=== PATIENT | female | born 1985 | race African-American/Black ===

== ENCOUNTER 2016-04-12 04:27 | Emergency (ER) | payer OTHER ==
[~2016-04-12] VITALS: Ht 160 cm; Wt 77.5 kg
[~2016-04-12 04:27] MED LIST: FLXUNK; NAPR250T2 PO
[2016-04-12 04:32] VITALS: Ht 160 cm; Wt 77.5 kg
[2016-04-12] MEDS ORDERED: MoRPHine SULFATE 4 MG/ML 1 ML CARP\\VIAL IV STA ×2 (04:56→06:41)
[2016-04-12] MEDS ORDERED: ACETAMINOPHEN 500 MG TAB PO STA (04:56)
[2016-04-12] MEDS ORDERED: ONDANSETRON INJ 2 MG/ML 2 ML VIAL IV STA (04:56)
[2016-04-12] MEDS ORDERED: SODIUM CHLORIDE 0.9% 1000ML 1,000 ML IV STA (04:56)
[2016-04-12 05:11] LABS: URINE APPEARANCE CLOUDY (CLEAR); URINE BILIRUBIN NEG (NEG); URINE COLOR YELLOW; URINE EPITHELIAL CELL AUTO >30 /lpf (0-5); URINE NITRITE NEG (NEG); URINE SPECIFIC GRAVITY 1.013 (1.000-1.030); UROBILINOGEN NEG (NEG); ZZUR CULT IF INDIC CLEAN CATCH YES
[2016-04-12 05:12] LABS: BASO % 0.2 %; BASO ABS # 0.02 K/uL (0-0.2); COMPLETE YES; EOS % 1.2 %; HEMATOCRIT 29.8 % (37-47); IG% 0.1 %; LYMPH % 11.3 %; LYMPH ABS # 1.22 K/uL (1.2-3.4); MEAN CELL VOLUME 74.1 fL (80-100); MEAN CORPUSCULAR HEMOGLOBIN 23.1 pg (25-34); MEAN CORPUSCULAR HGB CONC 31.2 g/dl (32-36); MEAN PLATELET VOLUME 9.5 fL (7.4-10.4); MONO % 6.1 %; NEUT % 81.1 %; PLATELET COUNT 402 K/uL (130-400); RED BLOOD COUNT 4.02 M/uL (4.2-5.4); WHITE BLOOD COUNT 10.78 K/uL (4.8-10.8)
[2016-04-12 05:29] LABS: BUN/CREATININE RATIO 5.5 (10-20); CALCIUM 9.1 mg/dl (8.5-10.1); CREATININE 1.1 mg/dl (0.60-1.20); POTASSIUM 3.9 mmol/L (3.5-5.1)
[2016-04-12 05:30] LABS: MANUAL MICROSCOPIC REQUIRED? NO; REVIEW REQ? YES
[2016-04-12] MEDS ORDERED: OPTIRAY 320 IV PRN (05:30)
[2016-04-12 05:32] LABS: ALB/GLOB RATIO 0.9 (0.9-2); C-REACTIVE PROTEIN 10.8 mg/dl (0-0.29)
--- NOTE | 2016-04-12 06:45 | EMERGENCY ROOM VISIT NOTE ---
History First contact with patient: 04:40 Chief Complaint: ABDOMINAL PAIN Stated Complaint: LWR RIGHT ABDOMINAL PAIN Nursing Triage Summary: Pt reports she developed RLQ abdominal pain yesterday morning. Fever developed. Pain has worsened throughout the day and was severe overnight. Hx of fibroids causing similar pain, but never this severe. History of Present Illness The patient is a 31 year old female who presents to the Emergency Department by private vehicle for evaluation of her RIGHT lower quadrant abdominal pain. She reports that yesterday and she noticed pain to the RIGHT lower quadrant. Her pain intensified throughout the day. She does report a history of uterine fibroids and was concerned that this was secondary to a fibroid. She has noticed feeling fevers. She was nauseated, however she did not vomit. She denies any diarrhea. She reports no blood in her stools. She denies any chance for . She rates her current discomfort as a 9/10. She denies any previous abdominal surgeries. She is uncertain of family history secondary to being adopted. She denies any headaches, dizziness, lightheadedness, chest pain, palpitations, short of breath, hematochezia, melena, hematuria, or dysuria. Review of Systems A complete 10-point Review of Systems was discussed with the patient, with pertinent positives and negatives listed in the History of Present Illness. All remaining Review of Systems questions can be considered negative unless otherwise specified. Past Medical/Surgical History Medical Problems: (1) Menorrhagia Social History Smoking Status: Never Smoker Smokeless Tobacco Use: No Drug Use: none Marital Status: in relationship Housing Status: lives with significant other Current/Historical Medications Scheduled Amoxicillin & Pot Clavulanate (Augmentin 500MG), 500 MG PO Q8H Ethinyl Estrad/Norgestimate (Sprintec 28), 1 TAB PO DAILY Scheduled PRN Hydrocodone/Acetaminophen 5MG/325MG ([place] 5MG/325MG), 1-2 TABLET PO Q4H PRN for Pain Allergies Coded Allergies: No Known Allergies (Unverified , NONE, 04/12/16) Physical Exam Vital Signs Date Time Temp Pulse Resp B/P Pulse Ox O2 Delivery O2 Flow Rate FiO2 04/12/16 09:08 84 16 93/61 99 04/12/16 08:25 37.1 85 16 81/48 97 Room Air 04/12/16 06:49 36.9 04/12/16 06:31 87 18 103/60 95 Room Air 04/12/16 04:32 37.8 114 18 120/69 98 Room Air Pain Rating (0-10): 9 Physical Exam VITAL SIGNS - Vital signs and nursing notes were reviewed. GENERAL - 31-year-old female appearing her stated age who is in no acute distress. Communicates well with provider and answers questions appropriately. LUNGS - Chest wall symmetric without accessory muscle use, intercostals retractions, or central cyanosis. Normal vesicular breath sounds CTA B/L. No wheezes, rales, or rhonchi appreciated. CARDIAC - RRR with S1/S2. No murmur, rubs, or gallops appreciated. ABDOMEN - Abdominal contour gravid appearing and without pulsations or visible masses. BS normoactive all four quadrants. Moderate tenderness to palpation appreciated in the RIGHT lower quadrant. Negative Rovsing's. No Chandler's. Large palpable mass in the RIGHT lower quadrant. PSYCH - A&Ox3 and cooperates fully with examiner. Pt is very pleasant and interacts well with examiner. Medical Decision & Procedures ER Provider Diagnostic Interpretation: Radiological imaging and reports were reviewed by myself. Radiologist's Interpretation as follows: ULTRASOUND OF THE PELVIS CLINICAL HISTORY: Right pelvic pain. COMPARISON STUDY: No priors. TECHNIQUE: Real-time, grayscale, and color flow sonography of the pelvis is performed both transabdominally and endovaginally. Images are reviewed in the transverse and longitudinal planes. FINDINGS: Uterus: The uterus is enlarged and heterogeneous, measuring over 15 cm in length. A solid uterine mass measures 17.5 cm. This demonstrates internal vascularity on color imaging and is typical in appearance for a large fibroid. Numerous additional fibroids are identified, some of which demonstrate dense calcification. Endometrium: The endometrium is normal in appearance, and the endometrial stripe is normal in thickness measuring up to 0.5 cm. Ovaries: The right ovary is not visualized. The left ovary is normal as visualized, measuring 4.1 x 2.1 x 1.7 cm. Normal Doppler waveforms are shown within the left ovary. Pelvis: There is no free fluid in the cul-de-sac. No concerning adnexal lesion is seen. IMPRESSION: 1. No acute sonographic abnormality is identified in the pelvis. 2. There are large uterine masses identified measuring up to 17 cm. Although pathologically indeterminant, the appearance is typical for fibroids. Consider gynecologic follow-up. 3. The left ovary is normal as visualized. The right ovary was not seen. CT SCAN OF THE ABDOMEN AND PELVIS WITH IV CONTRAST CLINICAL HISTORY: Right lower quadrant abdominal pain. COMPARISON STUDY: Pelvic ultrasound dated 04/12/2016. TECHNIQUE: Following the IV administration of 94 cc of Optiray 320, CT scan of the abdomen and pelvis is performed from the lung bases to the proximal femora. Images are reviewed in the axial, sagittal, and coronal planes. IV contrast was administered without complication. Automated dose control exposure was utilized. CT DOSE: 741.09 mGycm FINDINGS: Lung bases: The heart is normal in size and without pericardial effusion. The lung bases are clear noting dependent atelectasis. Liver: The contrast-enhanced liver is normal in size, contour, and attenuation. Focal fatty infiltration is noted adjacent to the falciform ligament. There is no intrahepatic biliary ductal dilatation. The hepatic veins and portal veins are patent. Gallbladder: Unremarkable. Spleen: Normal in size and attenuation. Pancreas: Unremarkable. Adrenal glands: Unremarkable. Kidneys: The contrast enhanced kidneys are normal in size and without hydronephrosis. The kidneys enhance symmetrically. Abdominal vasculature: The abdominal aorta is normal in course and caliber. Bowel: The small bowel and colon are normal in course and caliber. There is moderate colonic fecal retention. The appendix is well-visualized and normal. Peritoneum: There is no intraperitoneal free air or abdominal ascites. Lymphadenopathy: None. Pelvic viscera: The bladder is normal as visualized. The uterus is heterogeneous and contains numerous masses. Several of these are densely calcified. The appearance is typical for uterine fibroids. The largest fibroid measures over 16 cm and demonstrates central low-attenuation. This may represent necrosis. No adnexal lesion is identified. Skeletal structures: No lytic or blastic lesions are seen. There are bilateral pars defects at L5. Sclerotic change is seen involving the sacroiliac joints and pubic symphysis. IMPRESSION: 1. The uterus is markedly enlarged and infiltrated by numerous mass lesions. Although pathologically indeterminant, these are typical appearance for fibroids and this corresponds to the abnormality seen on today's pelvic ultrasound. 2. The largest fibroid measures over 16 cm and demonstrates central low-attenuation. This may represent necrosis/infarction. Follow-up with gynecology is recommended. 3. The appendix is well-visualized and normal. Laboratory Results 04/12/16 04:50 Red Blood Count 4.02, Mean Corpuscular Volume 74.1, Mean Corpuscular Hemoglobin 23.1, Mean Corpuscular Hemoglobin Concent 31.2, Mean Platelet Volume 9.5, Neutrophils (%) (Auto) 81.1, Lymphocytes (%) (Auto) 11.3, Monocytes (%) (Auto) 6.1, Eosinophils (%) (Auto) 1.2, Basophils (%) (Auto) 0.2, Neutrophils # (Auto) 8.74, Lymphocytes # (Auto) 1.22, Monocytes # (Auto) 0.66, Eosinophils # (Auto) 0.13, Basophils # (Auto) 0.02 04/12/16 04:50 Test 04/12/16 04:37 04/12/16 04:50 Urine Color YELLOW Urine Appearance CLOUDY (CLEAR) Urine pH 7.0 (4.5-7.5) Urine Specific [place] 1.013 (1.000-1.030) Urine Protein TRACE (NEG) Urine Glucose (UA) NEG (NEG) Urine Ketones 1+ (NEG) Urine Occult Blood 3+ (NEG) Urine Nitrite NEG (NEG) Urine Bilirubin NEG (NEG) Urine Urobilinogen NEG (NEG) Urine Leukocyte Esterase TRACE (NEG) Urine WBC (Auto) 5-10 /hpf (0-5) Urine RBC (Auto) 0-4 /hpf (0-4) Urine Hyaline Casts (Auto) 0 /lpf (0-5) Urine Epithelial Cells (Auto) >30 /lpf (0-5) Urine Bacteria (Auto) 2+ (NEG) Urine Pathogenic Casts /lpf (0) Urine Yeast (Auto) (NONE PRSENT) Urine Test NEG (NEG) White Blood Count 10.78 K/uL (4.8-10.8) Red Blood Count 4.02 M/uL (4.2-5.4) Hemoglobin 9.3 g/dL (12.0-16.0) Hematocrit 29.8 % (37-47) Mean Corpuscular Volume 74.1 fL (80-100) Mean Corpuscular Hemoglobin 23.1 pg (25-34) Mean Corpuscular Hemoglobin Concent 31.2 g/dl (32-36) Platelet Count 402 K/uL (130-400) Mean Platelet Volume 9.5 fL (7.4-10.4) Neutrophils (%) (Auto) 81.1 % Lymphocytes (%) (Auto) 11.3 % Monocytes (%) (Auto) 6.1 % Eosinophils (%) (Auto) 1.2 % Basophils (%) (Auto) 0.2 % Neutrophils # (Auto) 8.74 K/uL (1.4-6.5) Lymphocytes # (Auto) 1.22 K/uL (1.2-3.4) Monocytes # (Auto) 0.66 K/uL (0.11-0.59) Eosinophils # (Auto) 0.13 K/uL (0-0.5) Basophils # (Auto) 0.02 K/uL (0-0.2) RDW Standard Deviation 44.2 fL (36.4-46.3) RDW Coefficient of Variation 16.3 % (11.5-14.5) Immature Granulocyte % (Auto) 0.1 % Immature Granulocyte # (Auto) 0.01 K/uL (0.00-0.02) Erythrocyte Sedimentation Rate > 90 mm/hr (0-21) Anion Gap 9.0 mmol/L (3-11) Est Creatinine Clear Calc Drug Dose 73.0 ml/min Estimated GFR () 77.5 Estimated GFR (Non- 66.8 BUN/Creatinine Ratio 5.5 (10-20) Calcium Level 9.1 mg/dl (8.5-10.1) Magnesium Level 2.0 mg/dl (1.8-2.4) Total Bilirubin 0.4 mg/dl (0.2-1) Aspartate Amino Transf (AST/SGOT) 48 U/L (15-37) Alanine Aminotransferase (ALT/SGPT) 26 U/L (12-78) Alkaline Phosphatase 53 U/L (45-117) C-Reactive Protein 10.80 mg/dl (0-0.29) Total Protein 8.2 gm/dl (6.4-8.2) Albumin 3.8 gm/dl (3.4-5.0) Globulin 4.4 gm/dl (2.5-4.0) Albumin/Globulin Ratio 0.9 (0.9-2) Lipase 109 U/L (73-393) Human Chorionic Gonadotropin, Quant < 1 mIU/mL Date/Time Source Procedure Growth Status 04/12/16 04:37 Urine , Clean Catch Urine Culture - Final THREE TYPES OF ORGANSIMS PRESENT, ALL... Complete Medications Administered Medications (Trade) Dose Ordered Sig/Kennedy Route Start Time Stop Time Status Last Admin Dose Admin Sodium Chloride (Nss 1000ml) 1,000 ml @ 999 mls/hr Q1H1M STAT IV 04/12/16 04:56 04/12/16 05:56 DC 04/12/16 05:07 999 MLS/HR Ondansetron HCl (Zofran Inj) 4 mg NOW STAT IV 04/12/16 04:56 04/12/16 04:59 DC 04/12/16 05:07 4 MG Morphine Sulfate (MoRPHine SULFATE INJ) 4 mg NOW STAT IV 04/12/16 04:56 04/12/16 04:59 DC 04/12/16 05:06 4 MG Acetaminophen (Tylenol Tab) 1,000 mg NOW STAT PO 04/12/16 04:56 04/12/16 04:59 DC 04/12/16 05:06 1,000 MG Morphine Sulfate (MoRPHine SULFATE INJ) 4 mg NOW STAT IV 04/12/16 06:41 04/12/16 06:42 DC 04/12/16 06:48 4 MG ED Course Patient was seen and evaluated by myself. Labs were drawn, saline lock in place. The patient was hydrated with a 1000 mL normal saline bolus. She received 4 mg morphine and 4 mg Zofran intravenously. She was treated with 1 g of Tylenol for low-grade fever. Pelvic ultrasound was obtained. Abdomen and pelvis CT with IV and oral contrast was ordered. Laboratory results demonstrate no acute leukocytosis. The patient does have a moderate anemia. ESR was significantly elevated at greater than 90. CRP was elevated at 10.8. She has no significant electrolyte abnormalities. Urinalysis does not suggest infection. Urine was negative. Imaging results as above. Laboratory results and imaging studies were reviewed with the patient who acknowledges understanding. I did discuss the case with Dr. Ojeda of [facility]. She does not suggest antibiotic this time. She suggest close follow-up this week for recheck. Case management was able to establish an appointment tomorrow at 2:[address] Hall for continued management. Patient was comfortable with this disposition and plan. The patient was educated on worrisome symptoms for return visit to the emergency department. Patient discharged home afebrile and in good condition. Medical Decision Given the patient's presentation and stated complaints, I did elect to perform the above-mentioned workup. The patient presents today with a low-grade fever complaints of abdominal pain. She is palpable uterine mass. She has a known history of fibroids. Initial concern given the patient's anemia and elevated ESR was for malignancy. Because of this, ultrasound as well as CT of the abdomen pelvis with IV and oral contrast was ordered. She had no leukocytosis. CT confirms suspicion of worsening uterine fibroids. I did consult [facility]. I do not feel that any interventional management was necessary immediately, however they do feel the patient needs to follow closely for plan of action for worsening symptoms related to her fibroids. This information was relayed to the patient who acknowledges understanding. The patient was educated on worrisome symptoms for return visit to the emergency department. Patient discharged home afebrile and in good condition. In the evaluation and treatment of this patient, the following differential diagnoses were considered: Malignancy, , torsion, appendicitis, bowel perforation, diverticulitis, diverticulosis, amongst others. Impression Primary Impression: Uterine fibroid Additional Impression: Abdominal pain Departure Information Dispostion Home / Self-Care Condition GOOD Prescriptions Hydrocodone/Acetaminophen 5MG/325MG ([place] 5MG/325MG) Tab 1-2 TABLET PO Q4H Y for Pain, #20 TAB For Initial Treatment Prov: Abraham Golden PA-C 04/12/16 Referrals Katerin BAL M.D. (PCP) Ryan Melgar M.D. Patient Instructions ED Fibroids, [facility] Additional Instructions You have been treated in the Emergency Department your Abdominal Pain - Uterine Fibroids. You have been prescribed [place] to be used for pain control. This is a narcotic medication. You cannot drive or consume alcohol while on this medicine. This medicine should only be used for pain that cannot be controlled with over-the- counter pain medicines. For pain control, you can use the following [id number] medicines (if >12 yo): - Regular strength (325mg/tab) Tylenol (acetaminophen) 2 tabs every 4-6 hours as needed. Do not exceed 12 tablets in a 24 hour period. Avoid taking more than 4 grams (4000 mg) of Tylenol per day. This includes any other sources of acetaminophen you may take on a regular basis. - Regular strength (200 mg/tab) Advil (ibuprofen) 1-2 tabs every 4-6 hours as needed. Do not exceed a dose of 3200 mg per day. Drink plenty of water and stay well hydrated. Please follow-up with your [facility] this week for continued management. Return to the emergency department if your symptoms persist despite treatment plan outlined above or if the following symptoms occur: increased fevers, chills , worsening nausea/vomiting, blood in your stool or urine. Problem Qualifiers Primary Impression: Uterine fibroid Uterine leiomyoma location: unspecified location Qualified Codes: D25.9 - Leiomyoma of uterus, unspecified Additional Impression: Abdominal pain Abdominal location: right lower quadrant Qualified Codes: R10.31 - Right lower quadrant pain
--- NOTE | 2016-04-12 07:25 | DIAGNOSTIC IMAGING REPORT ---
ULTRASOUND OF THE PELVIS CLINICAL HISTORY: Right pelvic pain. COMPARISON STUDY: No priors. TECHNIQUE: Real-time, grayscale, and color flow sonography of the pelvis is performed both transabdominally and endovaginally. Images are reviewed in the transverse and longitudinal planes. FINDINGS: Uterus: The uterus is enlarged and heterogeneous, measuring over 15 cm in length. A solid uterine mass measures 17.5 cm. This demonstrates internal vascularity on color imaging and is typical in appearance for a large fibroid. Numerous additional fibroids are identified, some of which demonstrate dense calcification. Endometrium: The endometrium is normal in appearance, and the endometrial stripe is normal in thickness measuring up to 0.5 cm. Ovaries: The right ovary is not visualized. The left ovary is normal as visualized, measuring 4.1 x 2.1 x 1.7 cm. Normal Doppler waveforms are shown within the left ovary. Pelvis: There is no free fluid in the cul-de-sac. No concerning adnexal lesion is seen. IMPRESSION: 1. No acute sonographic abnormality is identified in the pelvis. 2. There are large uterine masses identified measuring up to 17 cm. Although pathologically indeterminant, the appearance is typical for fibroids. Consider gynecologic follow-up. 3. The left ovary is normal as visualized. The right ovary was not seen. Electronically signed by: Milton Head M.D. 04/12/2016 7:23 AM Dictated Date/Time: 04/12/2016 7:20 AM
--- NOTE | 2016-04-12 08:00 | DIAGNOSTIC IMAGING REPORT ---
CT SCAN OF THE ABDOMEN AND PELVIS WITH IV CONTRAST CLINICAL HISTORY: Right lower quadrant abdominal pain. COMPARISON STUDY: Pelvic ultrasound dated 04/12/2016. TECHNIQUE: Following the IV administration of 94 cc of Optiray 320, CT scan of the abdomen and pelvis is performed from the lung bases to the proximal femora. Images are reviewed in the axial, sagittal, and coronal planes. IV contrast was administered without complication. Automated dose control exposure was utilized. CT DOSE: 741.09 mGycm FINDINGS: Lung bases: The heart is normal in size and without pericardial effusion. The lung bases are clear noting dependent atelectasis. Liver: The contrast-enhanced liver is normal in size, contour, and attenuation. Focal fatty infiltration is noted adjacent to the falciform ligament. There is no intrahepatic biliary ductal dilatation. The hepatic veins and portal veins are patent. Gallbladder: Unremarkable. Spleen: Normal in size and attenuation. Pancreas: Unremarkable. Adrenal glands: Unremarkable. Kidneys: The contrast enhanced kidneys are normal in size and without hydronephrosis. The kidneys enhance symmetrically. Abdominal vasculature: The abdominal aorta is normal in course and caliber. Bowel: The small bowel and colon are normal in course and caliber. There is moderate colonic fecal retention. The appendix is well-visualized and normal. Peritoneum: There is no intraperitoneal free air or abdominal ascites. Lymphadenopathy: None. Pelvic viscera: The bladder is normal as visualized. The uterus is heterogeneous and contains numerous masses. Several of these are densely calcified. The appearance is typical for uterine fibroids. The largest fibroid measures over 16 cm and demonstrates central low-attenuation. This may represent necrosis. No adnexal lesion is identified. Skeletal structures: No lytic or blastic lesions are seen. There are bilateral pars defects at L5. Sclerotic change is seen involving the sacroiliac joints and pubic symphysis. IMPRESSION: 1. The uterus is markedly enlarged and infiltrated by numerous mass lesions. Although pathologically indeterminant, these are typical appearance for fibroids and this corresponds to the abnormality seen on today's pelvic ultrasound. 2. The largest fibroid measures over 16 cm and demonstrates central low-attenuation. This may represent necrosis/infarction. Follow-up with gynecology is recommended. 3. The appendix is well-visualized and normal. Electronically signed by: Milton Head M.D. 04/12/2016 7:59 AM Dictated Date/Time: 04/12/2016 7:54 AM
[2016-04-12 08:25] VITALS: TEMP 37.1
[2016-04-12] MEDS ORDERED: HYDR-5688 PO (08:48)
[2016-04-12 09:08] VITALS: BP 93/61; PULSE 84; O2SAT 99
[2016-04-15] MEDS ORDERED: SPR28 PO (08:01)
[2016-04-30] MEDS ORDERED: IRON20IN IV (10:40)
== END 2016-04-12 09:09 | disposition home or self-care (01) ==
LOC: C.EDB 04:28 → C.EDA 09:09
DX: D25.9 Leiomyoma of uterus, unspecified (principal)

== ENCOUNTER 2016-04-14 08:57 | Observation (INO) | payer OTHER ==
[~2016-04-14] VITALS: Ht 160 cm; Wt 77.5 kg
[2016-04-14] VITALS (13 sets, daily range): BP systolic 100–118; BP diastolic 62–77; PULSE 80–98; TEMP 36.8–37.6; O2SAT 98–100; Ht 160 cm; Wt 77.5 kg
[~2016-04-14 08:57] MED LIST changes: -FLXUNK; +HYDR-5688 PO; -NAPR250T2 PO
[2016-04-14 09:44] LABS: HEMATOCRIT 24.8 % (37-47); MEAN CELL VOLUME 72.9 fL (80-100); MEAN CORPUSCULAR HEMOGLOBIN 22.9 pg (25-34); MEAN PLATELET VOLUME 9.2 fL (7.4-10.4); PLATELET COUNT 390 K/uL (130-400); WHITE BLOOD COUNT 7.73 K/uL (4.8-10.8)
[2016-04-14 09:51] LABS: MEAN CORPUSCULAR HGB CONC 31.5 g/dl (32-36)
[2016-04-14 12:35] LABS: BASO % 0.3 %; BASO ABS # 0.02 K/uL (0-0.2); EOS % 2.1 %; HEMATOCRIT 24.3 % (37-47); IG% 0.1 %; LYMPH % 18.4 %; LYMPH ABS # 1.37 K/uL (1.2-3.4); MEAN CORPUSCULAR HEMOGLOBIN 22.8 pg (25-34); MEAN CORPUSCULAR HGB CONC 31.3 g/dl (32-36); MEAN PLATELET VOLUME 8.7 fL (7.4-10.4); MONO % 5.2 %; NEUT % 73.9 %; PLATELET COUNT 376 K/uL (130-400); RED BLOOD COUNT 3.33 M/uL (4.2-5.4); WHITE BLOOD COUNT 7.46 K/uL (4.8-10.8)
[2016-04-14 12:37] LABS: INR 1.1 (0.9-1.1); PARTIAL THROMBOPLASTIN RATIO 1.3; PROTHROMBIN TIME (PATIENT) 11.3 SECONDS (9.0-12.0)
[2016-04-14] MEDS ORDERED: IV FLUIDS COMPLETED PRN (12:45)
[2016-04-14 13:08] LABS: COMPLETE YES
--- NOTE | 2016-04-14 13:40 | Progress Note ---
Progress Note Date of Service Apr 14, 2016. Progress Note Progress Note Patient is feeling ok, denies weakness/dizziness. Tolerated PO lunch. Ambulating ok. Notes that vaginal bleeding has slowed, and is not heavy at this time. We discussed that if it increases, she is to notify RN. Vitals stable. 04/14/16 12:13 Red Blood Count 3.33, Mean Corpuscular Volume 73.0, Mean Corpuscular Hemoglobin 22.8, Mean Corpuscular Hemoglobin Concent 31.3, Mean Platelet Volume 8.7, Neutrophils (%) (Auto) 73.9, Lymphocytes (%) (Auto) 18.4, Monocytes (%) (Auto) 5.2, Eosinophils (%) (Auto) 2.1, Basophils (%) (Auto) 0.3, Neutrophils # (Auto) 5.51, Lymphocytes # (Auto) 1.37, Monocytes # (Auto) 0.39, Eosinophils # (Auto) 0.16, Basophils # (Auto) 0.02 Test 04/14/16 12:13 White Blood Count 7.46 K/uL (4.8-10.8) Red Blood Count 3.33 M/uL (4.2-5.4) Hemoglobin 7.6 g/dL (12.0-16.0) Hematocrit 24.3 % (37-47) Mean Corpuscular Volume 73.0 fL (80-100) Mean Corpuscular Hemoglobin 22.8 pg (25-34) Mean Corpuscular Hemoglobin Concent 31.3 g/dl (32-36) Platelet Count 376 K/uL (130-400) Mean Platelet Volume 8.7 fL (7.4-10.4) Neutrophils (%) (Auto) 73.9 % Lymphocytes (%) (Auto) 18.4 % Monocytes (%) (Auto) 5.2 % Eosinophils (%) (Auto) 2.1 % Basophils (%) (Auto) 0.3 % Neutrophils # (Auto) 5.51 K/uL (1.4-6.5) Lymphocytes # (Auto) 1.37 K/uL (1.2-3.4) Monocytes # (Auto) 0.39 K/uL (0.11-0.59) Eosinophils # (Auto) 0.16 K/uL (0-0.5) Basophils # (Auto) 0.02 K/uL (0-0.2) RDW Standard Deviation 43.9 fL (36.4-46.3) RDW Coefficient of Variation 16.2 % (11.5-14.5) Immature Granulocyte % (Auto) 0.1 % Immature Granulocyte # (Auto) 0.01 K/uL (0.00-0.02) Red Blood Cell Morphology Unremarkable Prothrombin Time 11.3 SECONDS (9.0-12.0) Prothromb Time International Ratio 1.1 (0.9-1.1) Activated Partial Thromboplast Time 33.4 SECONDS (21.0-31.0) Partial Thromboplastin Ratio 1.3 Discussed with patient; will plan to give 2u PRBC due to low hemoglobin. Since we are plannign outpatient myomectomy, it will be ideal to increase her hemoglobin prior to surgery. Patient is agreeable to plan. Discussed RBA of blood transfusion, informed consent obtained.
[2016-04-14] MEDS ORDERED: HYDR-5688 PO (14:32)
[2016-04-14] MEDS ORDERED: AMOX500T PO (14:32)
--- NOTE | 2016-04-14 15:01 | HISTORY & PHYSICAL EXAMINATION ---
DATE OF ADMISSION: 04/14/2016 CHIEF COMPLAINT: Enlarged uterus. HISTORY OF PRESENT ILLNESS: The patient is a 31-year-old G1, P1 who had initially presented to the office for evaluation of pelvic pain and a feeling of enlarged uterus. She was noted to have a 17 x 15 cm solid uterine mass consistent with fibroid on ultrasound and hemoglobin was 7.2. Therefore, she was recommended to come to [facility] for further evaluation and admission to both evaluate and control bleeding and possible blood transfusion. On admission, patient reports that while she does have heavy periods with heavy bleeding and passage of blood clots on the first 3-4 days of the period, at the current time she is not bleeding heavily, she just has a small amount of light bleeding today. Otherwise, she is feeling well. She denies weakness and dizziness. She is tolerating food and drink. She is urinating okay, normal bowel movements. Denies fever and chills. She had been started on Augmentin by Dr. Hall due to concern for degenerating fibroid. The patient notes that this fibroid has likely been there for many years but is unsure when she first noticed it. PAST MEDICAL HISTORY: Menorrhagia, fibroid uterus, and anemia. PAST SURGICAL HISTORY: Denies. REVIEW OF SYSTEMS: All systems reviewed negative except as above. SOCIAL HISTORY: Denies smoking, drug use and admits to occasional alcohol use. CURRENT MEDICATIONS: [place] and Augmentin. ALLERGIES: No known drug allergies. Vitals stable, afebrile. PHYSICAL EXAMINATION: GENERAL IMPRESSION: Awake, alert and oriented x3, no acute distress. HEART: Regular rate and rhythm S1, S2, no murmurs, gallops or rubs. LUNGS: Clear to auscultation bilaterally. ABDOMEN: Soft, nontender with pelvic mass that extends to 2-3 cm above the umbilicus. It is solid and nontender. No hernia is discovered on exam. GENITOURINARY: Deferred as patient had examination in office. EXTREMITIES: No edema and no calf tenderness. NEUROLOGIC: Oriented to person, place and time. Mood and affect are appropriate. LABORATORY DATA: White blood cell 7.73, hemoglobin 7.8, hematocrit 24.8, platelets 390. ASSESSMENT AND PLAN: Will admit for observation. I discussed with the patient her bleeding status. Given that she is not heavily bleeding at this time will not plan to administer IV estrogen due to lack of acute bleeding. However, we will likely plan to discharge the patient home with oral contraceptives to control her bleeding until outpatient surgery can be scheduled. I discussed with patient options for treatment of her fibroid uterus including the option of myomectomy versus uterine artery embolization. She expresses that she would like to keep her uterus if at all possible as she would like to retain the possibility of childbearing and is concerned that uterine artery embolization may cause infertility and therefore she would not like to proceed with that option. She is aware that surgery to attempt to remove fibroids could potentially result in a hysterectomy and so will plan to transfuse 2 units and observe.
[2016-04-14] MEDS ORDERED: AMOXICILLIN/CLAVULANATE TAB 500 MG TAB PO SCH (15:45)
[2016-04-14] MEDS: HYDROCODONE/ACETAMOPHEN 5/325MG TAB PO PRN ×3 (15:46→21:50)
[2016-04-14] MEDS ORDERED: HYDROCODONE/ACETAMOPHEN 5/325MG TAB PO PRN (17:00)
[2016-04-14] MEDS: AMOXICILLIN/CLAVULANATE TAB 500 MG TAB PO SCH (18:05)
--- NOTE | 2016-04-14 21:29 | Progress Note ---
Progress Note Date of Service Apr 14, 2016. Progress Note Patient has completed blood transfusion. Ambulating in room, feeling well. Vitals stable. Pad examined - after 1.5 hours, scant blood on pad. Will recheck hgb in AM and then discharge home. Will send home with rx for combination control to help limit blood loss.
[2016-04-14 22:07] LABS: HEMATOCRIT 29.9 % (37-47)
[2016-04-15 04:05] VITALS: BP 110/74; PULSE 87; TEMP 36.9; O2SAT 97
[2016-04-15 07:55] VITALS: BP 116/78; PULSE 84; TEMP 37.2; O2SAT 96
--- NOTE | 2016-04-15 07:59 | Progress Note ---
Progress Note Date of Service Apr 15, 2016. Progress Note Progress Note Feeling well, no complaints. Ambulating, urinating ok. Tolerating PO. Denies weakness/dizziness. Scant vaginal bleeding. Vital Signs Past 12 Hours Date Time Temp Pulse Resp B/P Pulse Ox O2 Delivery O2 Flow Rate FiO2 04/15/16 04:05 36.9 87 18 110/74 97 Room Air 04/14/16 23:53 98 Room Air 04/14/16 23:50 37.2 90 20 100/62 98 Room Air Gen: AAOx3 NAD CV: RRR L: no resp distress Ext: no edema A/P Anemia of acute blood loss s/p 2u PRBC Will plan to discharge to home, start Sprintec - take continuously. Will followup in office for surgical planning.
[2016-04-15] MEDS ORDERED: SPR28 PO (08:01)
--- NOTE | 2016-04-15 08:03 | Discharge Instructions ---
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 Instructions / Follow-Up Instructions / Follow-Up ACTIVITY RECOMMENDATIONS: Activity: * You may return to normal activities. Bathing: * Showers or baths are permissible. SPECIAL CARE INSTRUCTIONS: None Vaginal Discharge: * If bleeding becomes free flowing, notify our office at . FOLLOW-UP: Appointments: * You will need to call the office at soon after discharge to make the appointment for your next visit if it has not already been scheduled. WE WISH YOU A SPEEDY RECOVERY! Current Hospital Diet Patient's current hospital diet: Vegetarian Diet Discharge Diet Recommended Diet: Regular Diet Pending Studies Studies pending at discharge: no Medical Emergencies . Who to Call and When: Medical Emergencies: If at any time you feel your situation is an emergency, please call 911 immediately. . Non-Emergent Contact Non-Emergency issues call your: Primary Care Provider, Plant Biology Professor . . "Provider Documentation" section prepared by Maricruz Douglass. VTE Core Measure Inpt VTE Proph given/why not?: Contraindicated
[2016-04-15] MEDS: HYDROCODONE/ACETAMOPHEN 5/325MG TAB PO PRN (09:07)
[2016-04-15] MEDS: AMOXICILLIN/CLAVULANATE TAB 500 MG TAB PO SCH (09:07)
[2016-04-15 09:13] VITALS: BP 116/78; PULSE 84; TEMP 37.2; O2SAT 96
--- NOTE | 2016-04-29 23:03 | DISCHARGE SUMMARY ---
DIAGNOSES ON ADMISSION: 1. A 31-year-old G1, P1 2. Pelvic pain and enlarged uterus. 3. Symptomatic anemia with hemoglobin 7.2. 4. Large fibroid uterus. DIAGNOSES ON DISCHARGE: Same. DESCRIPTION OF STAY: The patient was admitted through the Emergency Department to evaluate and control vaginal bleeding. At time of admission, the patient reported that bleeding had subsided; however, due to symptoms and hemoglobin of 7.2 and plan for likely future surgery, decision was made to offer blood transformation. The patient was transfused with 2 units of packed red cells. After transfusion, the patient's hemoglobin was 9.7. The patient tolerated the transformation well and was discharged to home. DIET: Regular. ACTIVITY: As tolerated. FOLLOWUP: In the office as scheduled. HOME MEDICATIONS: as needed. CONDITION ON DISCHARGE: Stable and good.
[2016-04-30] MEDS ORDERED: IRON20IN IV (10:40)
== END 2016-04-15 09:30 | disposition home or self-care (01) ==
LOC: C.LAB 08:57 → INTOOBSV 10:33 → C.MS4N 10:33
PROVIDERS: ADMIT Obstetrics & Gynecology; ATTEND Obstetrics & Gynecology
DX: D62 Acute posthemorrhagic anemia (principal); N92.0 Excessive and frequent menstruation with regular cycle; D25.9 Leiomyoma of uterus, unspecified

== ENCOUNTER 2016-05-27 23:12 | Emergency (ER) | payer OTHER ==
[~2016-05-27] VITALS: Ht 160 cm; Wt 79.0 kg
[~2016-05-27 23:12] MED LIST changes: +IRON20IN IV; +SPR28 PO
[2016-05-27 23:17] VITALS: TEMP 36.9; Ht 160 cm; Wt 79.0 kg
[2016-05-27] MEDS ORDERED: SODIUM CHLORIDE 0.9% 1000ML 1,000 ML IV STA (23:32)
[2016-05-27] MEDS ORDERED: ONDANSETRON INJ 2 MG/ML 2 ML VIAL IV STA (23:32)
[2016-05-27] MEDS ORDERED: MoRPHine SULFATE 4 MG/ML 1 ML CARP\\VIAL IV STA (23:32)
[2016-05-27 23:47] LABS: BASO % 0.2 %; BASO ABS # 0.01 K/uL (0-0.2); EOS % 3.4 %; LYMPH % 36.4 %; LYMPH ABS # 2.15 K/uL (1.2-3.4); MEAN CELL VOLUME 82.7 fL (80-100); MEAN CORPUSCULAR HGB CONC 32.6 g/dl (32-36); MEAN PLATELET VOLUME 9.3 fL (7.4-10.4); MONO % 5.8 %; NEUT % 54.2 %; PLATELET COUNT 275 K/uL (130-400); RED BLOOD COUNT 4.23 M/uL (4.2-5.4); WHITE BLOOD COUNT 5.91 K/uL (4.8-10.8)
[2016-05-28 00:09] LABS: COMPLETE YES
[2016-05-28 00:11] LABS: BUN/CREATININE RATIO 9.4 (10-20); CALCIUM 8.8 mg/dl (8.5-10.1); CREATININE 0.86 mg/dl (0.60-1.20); PARTIAL THROMBOPLASTIN RATIO 1.1
[2016-05-28] MEDS ORDERED: MoRPHine SULFATE 4 MG/ML 1 ML CARP\\VIAL IV STA (00:45)
--- NOTE | 2016-05-28 01:25 | EMERGENCY ROOM VISIT NOTE ---
History First contact with patient: 23:21 Chief Complaint: ABDOMINAL PAIN Stated Complaint: ABDOMINAL PAIN History of Present Illness The patient is a 31 year old female who presents to the Emergency Department by private vehicle for evaluation of her persistent abdominal discomfort. The patient has a very large uterine fibroid which is scheduled to be surgically removed at [facility] within the next month. She is been using Percocet as prescribed by her COMPUTER FORENSICS EXAMINER for ongoing pain management. She ran out of her prescription yesterday and has had persistent pain since. She does have an appointment tomorrow with her COMPUTER FORENSICS EXAMINER. She rates her current discomfort as an 8/ 10. Patient complains of some vaginal bleeding. She has had occasional bleeding for the last few weeks. She feels that tonight bleeding is somewhat heavier than usual. She is concerned that she didn't need a transfusion previously for her bleeding. She has been receiving iron transfusions most recently. She denies any headaches, dizziness, lightheadedness, chest pain, palpitations, short of breath, hematochezia, melena, hematuria, or dysuria. Review of Systems A complete 10-point Review of Systems was discussed with the patient, with pertinent positives and negatives listed in the History of Present Illness. All remaining Review of Systems questions can be considered negative unless otherwise specified. Past Medical/Surgical History Medical Problems: (1) Menorrhagia Social History Smoking Status: Former Smoker Drug Use: none Marital Status: in relationship Housing Status: lives with significant other Current/Historical Medications Scheduled Ethinyl Estrad/Norgestimate (Sprintec 28), 1 TAB PO DAILY Iron Sucrose (Venofer), 200 MG IV weekly Scheduled PRN Hydrocodone/Acetaminophen 5MG/325MG ([place] 5MG/325MG), 1-2 TABLET PO Q4H PRN for Pain Allergies Coded Allergies: No Known Allergies (Unverified , NONE, 05/27/16) Physical Exam Vital Signs Date Time Temp Pulse Resp B/P Pulse Ox O2 Delivery O2 Flow Rate FiO2 05/28/16 01:35 76 16 133/76 98 05/28/16 01:01 72 16 127/83 99 Room Air 05/27/16 23:43 72 05/27/16 23:17 36.9 78 18 132/87 98 Room Air Pain Rating (0-10): 8 Physical Exam VITAL SIGNS - Vital signs and nursing notes were reviewed. GENERAL - 31-year-old female appearing her stated age who is in no acute distress. Communicates well with provider and answers questions appropriately. LUNGS - Chest wall symmetric without accessory muscle use, intercostals retractions, or central cyanosis. Normal vesicular breath sounds CTA B/L. No wheezes, rales, or rhonchi appreciated. CARDIAC - RRR with S1/S2. No murmur, rubs, or gallops appreciated. ABDOMEN - Abdominal contour gravid and without pulsations or visible masses. BS normoactive all four quadrants. Mild tenderness to palpation appreciated throughout. No guarding. No Rebound Tenderness. Negative Rovsing's. Negative Chandler's. Palpable lower abdominal mass. No hepatosplenomegaly or ascites noted. PSYCH - A&Ox3 and cooperates fully with examiner. Pt is very pleasant and interacts well with examiner. Medical Decision & Procedures Laboratory Results 05/27/16 23:33 Red Blood Count 4.23, Mean Corpuscular Volume 82.7, Mean Corpuscular Hemoglobin 27.0, Mean Corpuscular Hemoglobin Concent 32.6, Mean Platelet Volume 9.3, Neutrophils (%) (Auto) 54.2, Lymphocytes (%) (Auto) 36.4, Monocytes (%) (Auto) 5.8, Eosinophils (%) (Auto) 3.4, Basophils (%) (Auto) 0.2, Neutrophils # (Auto) 3.21, Lymphocytes # (Auto) 2.15, Monocytes # (Auto) 0.34, Eosinophils # (Auto) 0.20, Basophils # (Auto) 0.01 05/27/16 23:33 Test 05/27/16 23:33 05/28/16 00:00 White Blood Count 5.91 K/uL (4.8-10.8) Red Blood Count 4.23 M/uL (4.2-5.4) Hemoglobin 11.4 g/dL (12.0-16.0) Hematocrit 35.0 % (37-47) Mean Corpuscular Volume 82.7 fL (80-100) Mean Corpuscular Hemoglobin 27.0 pg (25-34) Mean Corpuscular Hemoglobin Concent 32.6 g/dl (32-36) Platelet Count 275 K/uL (130-400) Mean Platelet Volume 9.3 fL (7.4-10.4) Neutrophils (%) (Auto) 54.2 % Lymphocytes (%) (Auto) 36.4 % Monocytes (%) (Auto) 5.8 % Eosinophils (%) (Auto) 3.4 % Basophils (%) (Auto) 0.2 % Neutrophils # (Auto) 3.21 K/uL (1.4-6.5) Lymphocytes # (Auto) 2.15 K/uL (1.2-3.4) Monocytes # (Auto) 0.34 K/uL (0.11-0.59) Eosinophils # (Auto) 0.20 K/uL (0-0.5) Basophils # (Auto) 0.01 K/uL (0-0.2) RDW Standard Deviation 66.2 fL (36.4-46.3) RDW Coefficient of Variation 22.2 % (11.5-14.5) Immature Granulocyte % (Auto) 0.0 % Immature Granulocyte # (Auto) 0.00 K/uL (0.00-0.02) Red Blood Cell Morphology Unremarkable Prothrombin Time 11.0 SECONDS (9.0-12.0) Prothromb Time International Ratio 1.0 (0.9-1.1) Activated Partial Thromboplast Time 27.8 SECONDS (21.0-31.0) Partial Thromboplastin Ratio 1.1 Anion Gap 5.0 mmol/L (3-11) Est Creatinine Clear Calc Drug Dose 94.3 ml/min Estimated GFR () 104.3 Estimated GFR (Non- 90.0 BUN/Creatinine Ratio 9.4 (10-20) Calcium Level 8.8 mg/dl (8.5-10.1) Total Bilirubin 0.2 mg/dl (0.2-1) Aspartate Amino Transf (AST/SGOT) 14 U/L (15-37) Alanine Aminotransferase (ALT/SGPT) 18 U/L (12-78) Alkaline Phosphatase 39 U/L (45-117) Total Protein 7.4 gm/dl (6.4-8.2) Albumin 3.7 gm/dl (3.4-5.0) Globulin 3.7 gm/dl (2.5-4.0) Albumin/Globulin Ratio 1.0 (0.9-2) Urine Color ORANGE Urine Appearance CLEAR (CLEAR) Urine pH 8.0 (4.5-7.5) Urine Specific [place] 1.018 (1.000-1.030) Urine Protein 1+ (NEG) Urine Glucose (UA) NEG (NEG) Urine Ketones NEG (NEG) Urine Occult Blood 3+ (NEG) Urine Nitrite NEG (NEG) Urine Bilirubin NEG (NEG) Urine Urobilinogen NEG (NEG) Urine Leukocyte Esterase SMALL (NEG) Urine WBC (Auto) >30 /hpf (0-5) Urine RBC (Auto) >30 /hpf (0-4) Urine Hyaline Casts (Auto) 0 /lpf (0-5) Urine Epithelial Cells (Auto) >30 /lpf (0-5) Urine Bacteria (Auto) 1+ (NEG) Urine Pathogenic Casts /lpf (0) Date/Time Source Procedure Growth Status 05/28/16 00:00 Urine , Clean Catch Urine Culture - Final Group B Beta Strep Corynbact.sp Not Urealyticum Complete Medications Administered Medications (Trade) Dose Ordered Sig/Kennedy Route Start Time Stop Time Status Last Admin Dose Admin Sodium Chloride (Nss 1000ml) 1,000 ml @ 125 mls/hr Q8H STAT IV 05/27/16 23:32 05/28/16 01:46 DC 05/27/16 23:44 125 MLS/HR Ondansetron HCl (Zofran Inj) 4 mg NOW STAT IV 05/27/16 23:32 05/27/16 23:34 DC 05/27/16 23:45 4 MG Morphine Sulfate (MoRPHine SULFATE INJ) 4 mg NOW STAT IV 05/27/16 23:32 05/27/16 23:34 DC 05/27/16 23:45 4 MG Morphine Sulfate (MoRPHine SULFATE INJ) 4 mg NOW STAT IV 05/28/16 00:45 05/28/16 00:46 DC 05/28/16 00:53 4 MG ED Course Patient was seen and evaluated by myself. Labs were drawn, saline lock in place. The patient was hydrated with normal saline at a rate of 1 25 mL per hour. She was treated with 4 mg morphine and 4 mg Zofran intravenously. Laboratory results demonstrate no acute leukocytosis. The patient is not overly anemic. She has no significant electrolyte abnormalities. Urinalysis demonstrates blood without signs of infection. Patient complains of continued pain. She was treated with an additional 4 mg morphine intravenously. Laboratory results were reviewed with the patient who acknowledges understanding. She was offered pelvic exam which she declines this point. The patient has appointment tomorrow with her COMPUTER FORENSICS EXAMINER. She will keep this point. She will return for any changing or worsening symptoms. Patient discharged home afebrile and in good condition. Medical Decision Given the patient's presentation and stated complaints, I did elect to perform the above-mentioned workup. The patient presents with persistent abdominal pain secondary to uterine fibroids. There is been ongoing vaginal bleeding. Vital signs are stable. She is not overly anemic. She had adequate pain control the emergency department. The patient is scheduled to see her COMPUTER FORENSICS EXAMINER tomorrow for repeat pain prescription and continue management. The patient was educated on worrisome symptoms for return visit to the emergency department. Patient discharged home in good condition. In the evaluation and treatment of this patient, the following differential diagnoses were considered: Appendicitis, diverticulitis, ovarian torsion, uterine abruption, hemorrhage, amongst others. Impression Primary Impression: Abdominal pain Additional Impressions: Vaginal bleeding Menorrhagia Uterine fibroid Departure Information Dispostion Home / Self-Care Condition GOOD Referrals Katerin BAL M.D. (PCP) Patient Instructions My [facility] Additional Instructions You have been treated in the Emergency Department your Abdominal Pain - Uterine Fibroid and Vaginal Bleeding. You have been provided Percocet to be used for pain control. This is a narcotic medication. You cannot drive or consume alcohol while on this medicine. This medicine should only be used for pain that cannot be controlled with over-the- counter pain medicines. Keep your appointment with COMPUTER FORENSICS EXAMINER tomorrow. For pain control, you can use the following [id number] medicines (if >12 yo): - Regular strength (325mg/tab) Tylenol (acetaminophen) 2 tabs every 4-6 hours as needed. Do not exceed 12 tablets in a 24 hour period. Avoid taking more than 4 grams (4000 mg) of Tylenol per day. This includes any other sources of acetaminophen you may take on a regular basis. - Regular strength (200 mg/tab) Advil (ibuprofen) 1-2 tabs every 4-6 hours as needed. Do not exceed a dose of 3200 mg per day. Drink plenty of water and stay well hydrated. Return to the emergency department if your symptoms persist despite treatment plan outlined above or if the following symptoms occur: increased fevers, chills , worsening nausea/vomiting, blood in your stool or urine. Problem Qualifiers Primary Impression: Abdominal pain Abdominal location: generalized Qualified Codes: R10.84 - Generalized abdominal pain Additional Impressions: Menorrhagia Menorrahagia type: with onset of menstrual periods Qualified Codes: N92.2 - Excessive menstruation at puberty Uterine fibroid Uterine leiomyoma location: unspecified location Qualified Codes: D25.9 - Leiomyoma of uterus, unspecified
[2016-05-28 01:27] LABS: URINE APPEARANCE CLEAR (CLEAR); URINE BILIRUBIN NEG (NEG); URINE COLOR ORANGE; URINE NITRITE NEG (NEG); URINE SPECIFIC GRAVITY 1.018 (1.000-1.030); UROBILINOGEN NEG (NEG); ZZUR CULT IF INDIC CLEAN CATCH YES
[2016-05-28 01:28] LABS: MANUAL MICROSCOPIC REQUIRED? NO; REVIEW REQ? YES
[2016-05-28] MEDS ORDERED: PERCOCET HOME PACK PO ONE (01:30)
[2016-05-28 01:34] LABS: SULFASALICYLIC ACID POS (NEG)
[2016-05-28 01:35] VITALS: BP 133/76; PULSE 76; O2SAT 98
[2016-05-28 01:37] LABS: URINE EPITHELIAL CELL AUTO >30 /lpf (0-5)
== END 2016-05-28 01:36 | disposition home or self-care (01) ==
LOC: C.EDB 23:13 → C.EDA 05-28 01:36
DX: R10.84 Generalized abdominal pain (principal); N93.9 Abnormal uterine and vaginal bleeding, unspecified; N92.0 Excessive and frequent menstruation with regular cycle; D25.9 Leiomyoma of uterus, unspecified; Z87.891 Personal history of nicotine dependence